=== PATIENT | female | born 1940 | race Caucasian/White ===

== ENCOUNTER 2022-03-25 12:58 | Inpatient (IN) | payer OTHER ==
[2022-03-25 13:22] VITALS: BMI 29.9
[2022-03-25 15:39] LABS: EOS % 1.1 % (0-4.5); MCH 20.9 pg (25.7-33.7); MCHC 28.9 g/dl (32.0-36.0); MEAN CELL VOLUME 72.1 fl (80-96); MEAN PLT VOLUME 8.5 fl (7.5-11.1); MONO % 9.8 % (3.8-10.2); NEUT % 66.1 % (42.8-82.8); PLATELET COUNT 340 10^3/uL (134-434); RBC 3.06 M/mm3 (3.60-5.2); RDW 24.7 % (11.6-15.6); WHITE BLOOD COUNT 6.5 K/mm3 (4.0-10.0)
[2022-03-25 15:43] LABS: HEMOGLOBIN 6.4 GM/dL (10.7-15.3)
[2022-03-25 16:00] LABS: ALBUMIN 3.7 g/dl (3.4-5.0); CALCIUM 9.2 mg/dL (8.5-10.1)
[2022-03-25 16:03] LABS: CREATININE 1.5 mg/dL (0.55-1.3)
[2022-03-25 16:05] LABS: BILIRUBIN,TOTAL 0.3 mg/dL (0.2-1); TOT PROT 6.3 g/dl (6.4-8.2)
[2022-03-25 17:56] LABS: INR 1.04 (0.83-1.09)
[2022-03-25 17:59] LABS: ACTIVATED PTT 27.3 SECONDS (25.2-36.5)
[2022-03-25] MEDS ORDERED: PATIENT'S OWN MEDICATION (NON-FORMULARY) (Meloxicam 15 MG Tablet) PO PRN (21:06)
[2022-03-25] MEDS ORDERED: DONEPEZIL HCL 10 MG TABLET (FP) PO SCH (21:15)
[2022-03-25] MEDS ORDERED: PATIENT'S OWN MEDICATION (NON-FORMULARY) (Mirtazapine [Mirtazapine] 7.5 MG Tablet) PO SCH (22:00)
[2022-03-25 22:01] LABS: ANISOCYTOSIS 2+; MACROCYTOSIS 0; OVALOCYTE 1+; PLATELET ESTIMATE NORMAL
[2022-03-26] MEDS: GABAPENTIN 300 MG CAPSULE PO SCH ×4 (01:43→21:02)
[2022-03-26] MEDS: DONEPEZIL HCL 5 MG TABLET (FP) PO SCH ×2 (01:43→09:38)
[2022-03-26] MEDS: ATORVASTATIN CA 40 MG TABLET (FP) PO SCH ×2 (01:43→21:02)
[2022-03-26] MEDS: MONTELUKAST NA 10 MG TABLET PO SCH ×2 (01:43→21:02)
[2022-03-26] MEDS: QUEtiapine FUMARATE 25 MG TABLET PO SCH ×3 (01:43→21:02)
[2022-03-26] MEDS: INSULIN SLIDING SCALE (NOVOLOG) 1 VIAL SQ SCH ×4 (01:54→16:30)
[2022-03-26] MEDS ORDERED: ACETAMINOPHEN 1000 MG/100 ML BAG IVPB ONE (02:02)
[2022-03-26] MEDS ORDERED: INSULIN (NOVOLOG) ASPART 100 UNITS/ML 10ML VIAL ONE (07:16)
[2022-03-26] MEDS: ASPIRIN 81 MG CHEWABLE TABLETS PO SCH (09:38)
[2022-03-26] MEDS: FAMOTIDINE 20 MG TABLET PO SCH (09:39)
[2022-03-26] MEDS: SERTRALINE HCL 50 MG TABLET (FP) PO SCH (09:39)
[2022-03-26 09:59] LABS: HEMATOCRIT 28.6 % (32.4-45.2); HEMOGLOBIN 8.6 GM/dL (10.7-15.3); MCH 22.5 pg (25.7-33.7); MCHC 30.2 g/dl (32.0-36.0); MEAN CELL VOLUME 74.7 fl (80-96); MEAN PLT VOLUME 8.8 fl (7.5-11.1); PLATELET COUNT 313 10^3/uL (134-434); RBC 3.83 M/mm3 (3.60-5.2); RDW 24.2 % (11.6-15.6); WHITE BLOOD COUNT 7.7 K/mm3 (4.0-10.0)
[2022-03-26] MEDS ORDERED: LOSARTAN POTASSIUM 50 MG TABLET PO SCH (10:00)
[2022-03-26] MEDS ORDERED: HYDROCHLOROTHIAZIDE 25 MG TABLET (FP) PO SCH (10:00)
[2022-03-26 10:15] LABS: CALCIUM 9.3 mg/dL (8.5-10.1)
[2022-03-26 10:16] LABS: BLOOD UREA NITROGEN 14.7 mg/dL (7-18)
[2022-03-26 10:19] LABS: CREATININE 1.3 mg/dL (0.55-1.3); PHOSPHOROUS 3.8 mg/dL (2.5-4.9)
[2022-03-26] MEDS ORDERED: IRON SUCROSE INJECTION 200 MG in SODIUM CHLORIDE 90 ML IVPB ONE (15:27)
[2022-03-26 20:03] LABS: PH,URINE 6.5 (5.0-8.0); URINE APPEARANCE CLEAR; URINE BILIRUBIN NEGATIVE (NEGATIVE); URINE COLOR YELLOW; URINE GLUCOSE (UA) NEGATIVE (NEGATIVE); URINE KETONE NEGATIVE (NEGATIVE); URINE LEUK ESTERASE NEGATIVE (NEGATIVE); URINE NITRITE NEGATIVE (NEGATIVE); URINE PROTEIN NEGATIVE (NEGATIVE); URINE UROBILINOGEN 0.2 mg/dL (0.2-1.0)
[2022-03-26] MEDS ORDERED: MOMETASONE FUROATE 220 MCG/IH INHALER IH SCH (21:00)
[2022-03-26 21:41] VITALS: RESP 20
[2022-03-27 05:58] VITALS: BP 132/57; PULSE 55; TEMP 97.7
[2022-03-27] MEDS: GABAPENTIN 300 MG CAPSULE PO SCH (06:47)
[2022-03-27] MEDS: INSULIN SLIDING SCALE (NOVOLOG) 1 VIAL SQ SCH (06:48)
[2022-03-27] MEDS: SERTRALINE HCL 50 MG TABLET (FP) PO SCH (09:28)
[2022-03-27] MEDS: FAMOTIDINE 20 MG TABLET PO SCH (09:28)
[2022-03-27] MEDS: DONEPEZIL HCL 5 MG TABLET (FP) PO SCH (09:28)
[2022-03-27] MEDS: ASPIRIN 81 MG CHEWABLE TABLETS PO SCH (09:28)
[2022-03-27] MEDS: QUEtiapine FUMARATE 25 MG TABLET PO SCH (09:28)
== END 2022-03-27 11:23 | disposition home or self-care (01) | DRG 812 ==
LOC: JER 12:58 → EDBD 12:58 → JERBED 14:48 → J8W 03-26 01:24
PROVIDERS: ADMIT Internal Medicine; ATTEND Internal Medicine
PROC: 30233N1 Transfusion of Nonautologous Red Blood Cells into Peripheral Vein, Percutaneous Approach (ICD-10-PCS; principal; 2022-03-25)
DX: D50.9 Iron deficiency anemia, unspecified (principal); I24.8 Other forms of acute ischemic heart disease; I10 Essential (primary) hypertension; F03.90 Unspecified dementia, unspecified severity, without behavioral disturbance, psychotic disturbance, mood disturbance, and anxiety; M81.0 Age-related osteoporosis without current pathological fracture; J45.909 Unspecified asthma, uncomplicated
CPT/HCPCS: 36415; 36430; 71045-TC-FY; 74176-TC; 76775-TC; 80048; 80053; 81003; 82550; 82728; 82962; 83010; 83036; 83540; 83550; 83615; 83735; 84100; 84466; 84484; 85025; 85027; 85045; 85610; 85730; 86850; 86900; 86901; 86922; 93005; 93010; 99285-25; C9803-CS; J1756; P9058; U0003; U0005

== ENCOUNTER 2023-03-09 09:38 | Observation (INO) | payer OTHER ==
[~2023-03-09 09:38] MED LIST: traMADol HCL 50 MG TABLET PO ONE
[2023-03-09] MEDS ORDERED: ACETAMINOPHEN 500 MG TABLET (FP) PO ONE (13:23)
[2023-03-09] MEDS ORDERED: ACETAMINOPHEN 500 MG TABLET (FP) ONE (13:54)
[2023-03-09 14:57] LABS: BASO % 0.8 % (0-2.0); EOS % 1.4 % (0-4.5); HEMATOCRIT 34.8 % (32.4-45.2); HEMOGLOBIN 11.3 GM/dL (10.7-15.3); LYMPH % 37.4 % (8-40); MCH 28.9 pg (25.7-33.7); MCHC 32.5 g/dl (32.0-36.0); MEAN CELL VOLUME 88.9 fl (80-96); MEAN PLT VOLUME 8.4 fl (7.5-11.1); NEUT % 49.4 % (42.8-82.8); PLATELET COUNT 252 10^3/uL (134-434); RBC 3.92 M/mm3 (3.60-5.2); RDW 25.5 % (11.6-15.6); WHITE BLOOD COUNT 4.5 K/mm3 (4.0-10.0)
[2023-03-09 15:32] LABS: CALCIUM 9.8 mg/dL (8.5-10.1)
[2023-03-09 15:33] LABS: ALBUMIN 3.9 g/dl (3.4-5.0); MAGNESIUM 2.1 mg/dL (1.8-2.4)
[2023-03-09 15:38] LABS: TOT PROT 7.3 g/dl (6.4-8.2)
[2023-03-09] MEDS ORDERED: traMADol HCL 50 MG TABLET PO ONE (15:39)
[2023-03-09 15:40] LABS: BILIRUBIN,TOTAL 0.2 mg/dL (0.2-1)
[2023-03-09 15:54] LABS: ANISOCYTOSIS 2+; MACROCYTOSIS 0
[2023-03-09] MEDS ORDERED: traMADol HCL 50 MG TABLET ONE (16:06)
[2023-03-09] MEDS ORDERED: traMADol HCL 50 MG TABLET PO PRN ×2 (23:14→23:33)
[2023-03-09] MEDS ORDERED: ALBUTEROL SO4 HFA INHALER IH PRN (23:51)
[2023-03-10 09:04] VITALS: BMI 25.9
[2023-03-10] MEDS: ACETAMINOPHEN 500 MG TABLET (FP) PO PRN ×2 (10:05→21:48)
[2023-03-10] MEDS: SERTRALINE HCL 50 MG TABLET (FP) PO SCH (10:06)
[2023-03-10] MEDS: FAMOTIDINE 20 MG TABLET PO SCH (10:07)
[2023-03-10] MEDS: ASPIRIN 81 MG CHEWABLE TABLETS PO SCH (10:07)
[2023-03-10] MEDS: GABAPENTIN 300 MG CAPSULE PO SCH (10:07)
[2023-03-10] MEDS: HYDROCHLOROTHIAZIDE 25 MG TABLET (FP) PO SCH (10:07)
[2023-03-10] MEDS: LOSARTAN POTASSIUM 50 MG TABLET PO SCH (10:07)
[2023-03-10] MEDS: ENOXAPARIN NA (PORCINE) 40 MG/0.4 ML DISP.SYRIN SQ SCH (10:08)
[2023-03-10] MEDS: QUEtiapine FUMARATE 25 MG TABLET PO SCH (10:08)
[2023-03-10] MEDS: MOMETASONE FUROATE 110 MCG/IH INHALER IH SCH ×2 (10:22→21:52)
[2023-03-10] MEDS: MIRTAZAPINE 15 MG TABLET (FP) PO SCH ×2 (10:23→21:49)
[2023-03-10 10:27] LABS: BASO % 2.2 % (0-2.0); EOS % 2.9 % (0-4.5); HEMATOCRIT 34.8 % (32.4-45.2); HEMOGLOBIN 11.2 GM/dL (10.7-15.3); LYMPH % 31.4 % (8-40); MCH 28.9 pg (25.7-33.7); MCHC 32.1 g/dl (32.0-36.0); MEAN CELL VOLUME 89.9 fl (80-96); MEAN PLT VOLUME 8.5 fl (7.5-11.1); MONO % 12.3 % (3.8-10.2); NEUT % 51.2 % (42.8-82.8); PLATELET COUNT 266 10^3/uL (134-434); RBC 3.86 M/mm3 (3.60-5.2); RDW 24.9 % (11.6-15.6); WHITE BLOOD COUNT 3.7 K/mm3 (4.0-10.0)
[2023-03-10 10:52] LABS: POTASSIUM 4.6 mmol/L (3.5-5.1)
[2023-03-10 10:59] LABS: CALCIUM 9.4 mg/dL (8.5-10.1)
[2023-03-10 11:00] LABS: ALBUMIN 3.6 g/dl (3.4-5.0)
[2023-03-10 11:02] LABS: PHOSPHOROUS 2.7 mg/dL (2.5-4.9)
[2023-03-10 11:04] LABS: BILIRUBIN,TOTAL 0.2 mg/dL (0.2-1); TOT PROT 7.1 g/dl (6.4-8.2)
[2023-03-10] MEDS: MONTELUKAST NA 10 MG TABLET PO SCH (21:48)
[2023-03-10] MEDS: DONEPEZIL HCL 10 MG TABLET (FP) PO SCH (21:48)
[2023-03-10] MEDS: ATORVASTATIN CA 40 MG TABLET (FP) PO SCH (21:49)
[2023-03-11] MEDS: LOSARTAN POTASSIUM 50 MG TABLET PO SCH (09:23)
[2023-03-11] MEDS: ENOXAPARIN NA (PORCINE) 40 MG/0.4 ML DISP.SYRIN SQ SCH (09:23)
[2023-03-11] MEDS: HYDROCHLOROTHIAZIDE 25 MG TABLET (FP) PO SCH (09:24)
[2023-03-11] MEDS: FAMOTIDINE 20 MG TABLET PO SCH (09:24)
[2023-03-11] MEDS: GABAPENTIN 300 MG CAPSULE PO SCH (09:24)
[2023-03-11] MEDS: QUEtiapine FUMARATE 25 MG TABLET PO SCH (09:24)
[2023-03-11] MEDS: SERTRALINE HCL 50 MG TABLET (FP) PO SCH (09:25)
[2023-03-11] MEDS: ASPIRIN 81 MG CHEWABLE TABLETS PO SCH (09:26)
[2023-03-11] MEDS: MOMETASONE FUROATE 110 MCG/IH INHALER IH SCH ×2 (09:26→22:33)
[2023-03-11 09:38] LABS: BASO % 1.1 % (0-2.0); EOS % 4.9 % (0-4.5); HEMATOCRIT 36.9 % (32.4-45.2); HEMOGLOBIN 12.1 GM/dL (10.7-15.3); LYMPH % 40.7 % (8-40); MCH 29.1 pg (25.7-33.7); MCHC 32.8 g/dl (32.0-36.0); MEAN PLT VOLUME 8.4 fl (7.5-11.1); MONO % 12.6 % (3.8-10.2); NEUT % 40.7 % (42.8-82.8); PLATELET COUNT 258 10^3/uL (134-434); RBC 4.14 M/mm3 (3.60-5.2); RDW 25.1 % (11.6-15.6); WHITE BLOOD COUNT 3.3 K/mm3 (4.0-10.0)
[2023-03-11] MEDS: MIRTAZAPINE 15 MG TABLET (FP) PO SCH ×2 (09:38→22:31)
[2023-03-11 09:57] LABS: POTASSIUM 4.2 mmol/L (3.5-5.1)
[2023-03-11 09:58] LABS: CALCIUM 9.2 mg/dL (8.5-10.1)
[2023-03-11 09:59] LABS: BLOOD UREA NITROGEN 16.3 mg/dL (7-18)
[2023-03-11 10:02] LABS: CREATININE 1.1 mg/dL (0.55-1.3)
[2023-03-11] MEDS ORDERED: ACETAMINOPHEN 1000 MG/100 ML BAG IVPB PRN (17:43)
[2023-03-11 18:12] VITALS: RESP 18
[2023-03-11] MEDS: CHOLECALCIFEROL (VIT D3) 1,000 UNIT (25 MCG) TABLET PO SCH (18:31)
[2023-03-11] MEDS: ATORVASTATIN CA 40 MG TABLET (FP) PO SCH (22:31)
[2023-03-11] MEDS: MONTELUKAST NA 10 MG TABLET PO SCH (22:31)
[2023-03-11] MEDS: DONEPEZIL HCL 10 MG TABLET (FP) PO SCH (22:32)
[2023-03-12] MEDS: ASPIRIN 81 MG CHEWABLE TABLETS PO SCH (09:30)
[2023-03-12] MEDS: ENOXAPARIN NA (PORCINE) 40 MG/0.4 ML DISP.SYRIN SQ SCH (09:30)
[2023-03-12] MEDS: LOSARTAN POTASSIUM 50 MG TABLET PO SCH (09:30)
[2023-03-12] MEDS: MIRTAZAPINE 15 MG TABLET (FP) PO SCH (09:31)
[2023-03-12] MEDS: HYDROCHLOROTHIAZIDE 25 MG TABLET (FP) PO SCH (09:31)
[2023-03-12] MEDS: SERTRALINE HCL 50 MG TABLET (FP) PO SCH (09:32)
[2023-03-12] MEDS: FAMOTIDINE 20 MG TABLET PO SCH (09:32)
[2023-03-12] MEDS: GABAPENTIN 300 MG CAPSULE PO SCH (09:32)
[2023-03-12] MEDS: CHOLECALCIFEROL (VIT D3) 1,000 UNIT (25 MCG) TABLET PO SCH (09:32)
[2023-03-12] MEDS ORDERED: ACETAMINOPHEN 500 MG TABLET (FP) PO PRN (10:32)
[2023-03-12] MEDS: QUEtiapine FUMARATE 25 MG TABLET PO SCH (10:40)
[2023-03-12] MEDS: MOMETASONE FUROATE 110 MCG/IH INHALER IH SCH (10:41)
[2023-03-12 14:24] VITALS: BP 123/66; PULSE 80; TEMP 97.9
== END 2023-03-12 16:51 | disposition home or self-care (01) ==
LOC: JER 09:38 → JERBED 18:01 → J5S 21:05
PROVIDERS: ADMIT Internal Medicine
PROC: 3E023GC Introduction of Other Therapeutic Substance into Muscle, Percutaneous Approach (ICD-10-PCS; principal; 2023-03-09)
DX: M25.551 Pain in right hip (principal); D64.9 Anemia, unspecified; Q65.89 Other specified congenital deformities of hip; M19.90 Unspecified osteoarthritis, unspecified site; I10 Essential (primary) hypertension; G89.29 Other chronic pain; M81.0 Age-related osteoporosis without current pathological fracture; F03.90 Unspecified dementia, unspecified severity, without behavioral disturbance, psychotic disturbance, mood disturbance, and anxiety; E78.5 Hyperlipidemia, unspecified; J45.909 Unspecified asthma, uncomplicated; R26.2 Difficulty in walking, not elsewhere classified; F32.A Depression, unspecified; E66.9 Obesity, unspecified; G62.9 Polyneuropathy, unspecified
CPT/HCPCS: 36415; 72100-TC-FY; 72195-TC; 73521-TC-FY; 73718-TC-RT; 80048; 80053; 82306; 83735; 84100; 85025; 93005; 93010; 96372; 97116-GP; 97162-GP; 99285-25; G0378

== ENCOUNTER 2023-10-29 18:34 | Observation (INO) | payer OTHER ==
[2023-10-29 20:59] LABS: BASO % 2.3 % (0-2.0); EOS % 4.3 % (0-4.5); HEMATOCRIT 21.9 % (32.4-45.2); LYMPH % 34.6 % (8-40); MCH 23.7 pg (25.7-33.7); MCHC 31.1 g/dl (32.0-36.0); MEAN CELL VOLUME 76.1 fl (80-96); MEAN PLT VOLUME 8.2 fl (7.5-11.1); MONO % 15.3 % (3.8-10.2); NEUT % 43.5 % (42.8-82.8); PLATELET COUNT 409 10^3/uL (134-434); RBC 2.88 M/mm3 (3.60-5.2); RDW 17.2 % (11.6-15.6); WHITE BLOOD COUNT 3.9 K/mm3 (4.0-10.0)
[2023-10-29 21:06] LABS: INR 0.97 (0.83-1.09)
[2023-10-29 21:08] LABS: ACTIVATED PTT 26.2 SECONDS (25.2-36.5)
[2023-10-29 21:14] LABS: POTASSIUM 4.9 mmol/L (3.5-5.1)
[2023-10-29 21:17] LABS: ALBUMIN 3.8 g/dl (3.4-5.0); BLOOD UREA NITROGEN 27.5 mg/dL (7-18); CALCIUM 9.1 mg/dL (8.5-10.1); MAGNESIUM 2.4 mg/dL (1.8-2.4)
[2023-10-29 21:19] LABS: CREATININE 1.3 mg/dL (0.55-1.3)
[2023-10-29 21:21] LABS: BILIRUBIN,TOTAL 0.2 mg/dL (0.2-1); TOT PROT 7.2 g/dl (6.4-8.2)
[2023-10-29 21:24] LABS: N-TERMINAL BNP 118.4 pg/ml (5-450)
[2023-10-29 21:25] LABS: HEMOGLOBIN 6.8 GM/dL (10.7-15.3)
[2023-10-29] MEDS ORDERED: ONDANSETRON 4 MG/2 ML VIAL IVPUSH PRN (22:57)
[2023-10-29] MEDS ORDERED: ALBUTEROL SO4 HFA INHALER IH PRN (23:10)
[2023-10-30] MEDS ORDERED: QUEtiapine FUMARATE 25 MG TABLET ONE (00:34)
[2023-10-30] MEDS ORDERED: PANTOPRAZOLE SODIUM 40 MG/100 ML BAG IVPB ONE (00:34)
[2023-10-30] MEDS ORDERED: MIRTAZAPINE 15 MG TABLET (FP) ONE (00:34)
[2023-10-30] MEDS ORDERED: ATORVASTATIN CA 40 MG TABLET (FP) ONE (00:34)
[2023-10-30] MEDS ORDERED: GABAPENTIN 300 MG CAPSULE ONE (00:34)
[2023-10-30] MEDS: QUEtiapine FUMARATE 25 MG TABLET PO SCH (00:45)
[2023-10-30] MEDS: ATORVASTATIN CA 40 MG TABLET (FP) PO SCH (00:45)
[2023-10-30] MEDS: PANTOPRAZOLE SODIUM 40 MG VIAL IVPUSH ONE (00:45)
[2023-10-30] MEDS: GABAPENTIN 300 MG CAPSULE PO SCH (00:46)
[2023-10-30] MEDS: MIRTAZAPINE 15 MG TABLET (FP) PO SCH (00:46)
[2023-10-30] MEDS: MOMETASONE FUROATE 220 MCG/IH INHALER IH SCH (00:46)
[2023-10-30 03:22] VITALS: BMI 25.9
[2023-10-30 06:56] VITALS: RESP 18
[2023-10-30 07:37] LABS: POTASSIUM 4.7 mmol/L (3.5-5.1)
[2023-10-30 07:44] LABS: HEMATOCRIT 27.7 % (32.4-45.2); HEMOGLOBIN 8.7 GM/dL (10.7-15.3); MCH 24.3 pg (25.7-33.7); MCHC 31.4 g/dl (32.0-36.0); MEAN CELL VOLUME 77.5 fl (80-96); MEAN PLT VOLUME 8.5 fl (7.5-11.1); PLATELET COUNT 418 10^3/uL (134-434); RBC 3.57 M/mm3 (3.60-5.2); RDW 16.7 % (11.6-15.6); WHITE BLOOD COUNT 5.7 K/mm3 (4.0-10.0)
[2023-10-30 07:46] LABS: ALBUMIN 3.6 g/dl (3.4-5.0); CALCIUM 9.5 mg/dL (8.5-10.1)
[2023-10-30 07:48] LABS: BLOOD UREA NITROGEN 23.5 mg/dL (7-18); MAGNESIUM 2.4 mg/dL (1.8-2.4)
[2023-10-30 07:50] LABS: CREATININE 1.2 mg/dL (0.55-1.3)
[2023-10-30 07:51] LABS: BILIRUBIN,TOTAL 0.6 mg/dL (0.2-1); PHOSPHOROUS 3.4 mg/dL (2.5-4.9)
[2023-10-30 07:53] LABS: TOT PROT 6.8 g/dl (6.4-8.2)
[2023-10-30 09:25] VITALS: BP 130/57; PULSE 65; TEMP 98.8
[2023-10-30] MEDS: HYDROCHLOROTHIAZIDE 25 MG TABLET (FP) PO SCH (09:56)
[2023-10-30] MEDS: PANTOPRAZOLE SODIUM 40 MG VIAL IVPUSH SCH (09:56)
[2023-10-30] MEDS: ASPIRIN 81 MG CHEWABLE TABLETS PO SCH (09:56)
[2023-10-30] MEDS: SERTRALINE HCL 50 MG TABLET (FP) PO SCH (09:56)
[2023-10-30] MEDS: CHOLECALCIFEROL (VIT D3) 1,000 UNIT (25 MCG) TABLET PO SCH (09:57)
[2023-10-30] MEDS: FAMOTIDINE 20 MG TABLET PO SCH (09:57)
[2023-10-30] MEDS: LOSARTAN POTASSIUM 50 MG TABLET PO SCH (09:57)
[2023-10-30 11:06] LABS: RETICULOCYTES 1.11 % (0.5-1.5)
[2023-10-30] MEDS ORDERED: DONEPEZIL HCL 10 MG TABLET (FP) PO SCH (22:00)
[2023-10-30] MEDS ORDERED: MONTELUKAST NA 10 MG TABLET PO SCH (22:00)
[2023-10-31 08:49] LABS: RETICULOCYTES 1.26 % (0.5-1.5)
== END 2023-10-30 13:16 | disposition home health service (06) ==
LOC: JER 18:34 → UNDOADMOB 21:26 → JERBED 21:26 → OBSVTOIN 22:59 → INTOOBSV 22:59 → JERBED 10-30 02:14 → J7W 10-30 02:14 → OBSVTOIN 10-30 08:03 → JERBED 10-30 08:03 → INTOOBSV 10-30 08:03 → J7W 10-30 08:03
PROVIDERS: ADMIT Internal Medicine; ATTEND Internal Medicine
PROC: 30233N1 Transfusion of Nonautologous Red Blood Cells into Peripheral Vein, Percutaneous Approach (ICD-10-PCS; principal; 2023-10-30)
PROC: 3E033GC Introduction of Other Therapeutic Substance into Peripheral Vein, Percutaneous Approach (ICD-10-PCS; 2023-10-30)
DX: D64.9 Anemia, unspecified (principal); F03.90 Unspecified dementia, unspecified severity, without behavioral disturbance, psychotic disturbance, mood disturbance, and anxiety; J45.909 Unspecified asthma, uncomplicated; M19.90 Unspecified osteoarthritis, unspecified site; R61 Generalized hyperhidrosis; I10 Essential (primary) hypertension; E78.5 Hyperlipidemia, unspecified; M81.0 Age-related osteoporosis without current pathological fracture; Z90.49 Acquired absence of other specified parts of digestive tract
CPT/HCPCS: 0241U-QW; 36415; 36430; 71045-TC-FY; 80053; 82272; 82728; 83010; 83036; 83540; 83550; 83615; 83735; 83880; 84100; 84484; 85025; 85027; 85045; 85610; 85730; 86850; 86900; 86901; 86922; 93005; 93010; 96374; 96376; 99285-25; G0378; P9058

== ENCOUNTER 2023-11-19 17:40 | Inpatient (IN) | payer OTHER ==
[2023-11-19 17:54] VITALS: BMI 26.2
[2023-11-19 18:57] LABS: BASO % 1.1 % (0-2.0); EOS % 2.5 % (0-4.5); HEMATOCRIT 24.9 % (32.4-45.2); HEMOGLOBIN 7.8 GM/dL (10.7-15.3); LYMPH % 32.1 % (8-40); MCH 23.5 pg (25.7-33.7); MCHC 31.3 g/dl (32.0-36.0); MEAN CELL VOLUME 75.2 fl (80-96); MEAN PLT VOLUME 8.4 fl (7.5-11.1); MONO % 16.2 % (3.8-10.2); NEUT % 48.1 % (42.8-82.8); PLATELET COUNT 324 10^3/uL (134-434); RBC 3.31 M/mm3 (3.60-5.2); RDW 19.4 % (11.6-15.6); WHITE BLOOD COUNT 3.6 K/mm3 (4.0-10.0)
[2023-11-19 19:03] LABS: INR 0.95 (0.83-1.09); PROTHROMBIN TIME (PATIENT) 10.9 SEC (9.7-13.0)
[2023-11-19 19:06] LABS: ACTIVATED PTT 27.6 SECONDS (25.2-36.5)
[2023-11-19 19:26] LABS: ALBUMIN 3.9 g/dl (3.4-5.0); BLOOD UREA NITROGEN 31.5 mg/dL (7-18)
[2023-11-19 19:30] LABS: CREATININE 1.8 mg/dL (0.55-1.3)
[2023-11-19 19:31] LABS: BILIRUBIN,TOTAL 0.2 mg/dL (0.2-1); TOT PROT 6.8 g/dl (6.4-8.2)
[2023-11-19] MEDS: LACTATED RINGERS SOLUTION 1000 ML INFUS.BAG IV ONE (19:58)
[2023-11-19] MEDS: SODIUM CHLORIDE 1,000 ML IV SCH (21:32)
[2023-11-19] MEDS ORDERED: ATORVASTATIN CA 40 MG TABLET (FP) ONE (21:55)
[2023-11-19] MEDS ORDERED: GABAPENTIN 300 MG CAPSULE ONE (21:55)
[2023-11-19] MEDS ORDERED: QUEtiapine FUMARATE 25 MG TABLET ONE (21:55)
[2023-11-19] MEDS: GABAPENTIN 300 MG CAPSULE PO SCH (21:57)
[2023-11-19] MEDS: ATORVASTATIN CA 40 MG TABLET (FP) PO SCH (21:57)
[2023-11-19] MEDS: QUEtiapine FUMARATE 25 MG TABLET PO SCH (21:57)
[2023-11-20 07:03] LABS: HEMATOCRIT 24.7 % (32.4-45.2); HEMOGLOBIN 7.6 GM/dL (10.7-15.3); MCH 23.6 pg (25.7-33.7); MCHC 30.9 g/dl (32.0-36.0); MEAN CELL VOLUME 76.5 fl (80-96); MEAN PLT VOLUME 8.5 fl (7.5-11.1); PLATELET COUNT 275 10^3/uL (134-434); RBC 3.23 M/mm3 (3.60-5.2); RDW 19.1 % (11.6-15.6); WHITE BLOOD COUNT 4.1 K/mm3 (4.0-10.0)
[2023-11-20 07:20] LABS: POTASSIUM 4.9 mmol/L (3.5-5.1)
[2023-11-20 07:23] LABS: CALCIUM 9.1 mg/dL (8.5-10.1)
[2023-11-20 07:24] LABS: BLOOD UREA NITROGEN 24.6 mg/dL (7-18); MAGNESIUM 2.4 mg/dL (1.8-2.4)
[2023-11-20 07:27] LABS: CREATININE 1.4 mg/dL (0.55-1.3)
[2023-11-20] MEDS ORDERED: PATIENT'S OWN MEDICATION (NON-FORMULARY) (Losartan Potassium [Cozaar] 100 MG Tablet) PO SCH (10:00)
[2023-11-20] MEDS ORDERED: HYDROCHLOROTHIAZIDE 25 MG TABLET (FP) PO SCH (10:00)
[2023-11-20] MEDS ORDERED: GABAPENTIN 300 MG CAPSULE ONE (10:09)
[2023-11-20] MEDS ORDERED: FERROUS SO4 325 MG TABLET (FP) ONE (10:10)
[2023-11-20] MEDS ORDERED: SERTRALINE HCL 50 MG TABLET (FP) ONE (10:16)
[2023-11-20] MEDS: FERROUS SO4 325 MG TABLET (FP) PO SCH (10:18)
[2023-11-20] MEDS: SERTRALINE HCL 50 MG TABLET (FP) PO SCH (10:18)
[2023-11-20] MEDS: FAMOTIDINE 20 MG TABLET PO SCH (12:13)
[2023-11-20] MEDS: ACETAMINOPHEN 325 MG TABLET (FP) PO PRN (16:11)
[2023-11-20] MEDS: MIRTAZAPINE 15 MG TABLET (FP) PO SCH (22:00)
[2023-11-20] MEDS: DONEPEZIL HCL 10 MG TABLET (FP) PO SCH (22:01)
[2023-11-20] MEDS: MONTELUKAST NA 10 MG TABLET PO SCH (22:01)
[2023-11-20] MEDS: MOMETASONE FUROATE 220 MCG/IH INHALER IH SCH (22:39)
[2023-11-21 08:12] LABS: BASO % 1.1 % (0-2.0); EOS % 5.6 % (0-4.5); HEMATOCRIT 26.2 % (32.4-45.2); LYMPH % 43.9 % (8-40); MCH 23.6 pg (25.7-33.7); MCHC 30.5 g/dl (32.0-36.0); MEAN CELL VOLUME 77.2 fl (80-96); MEAN PLT VOLUME 8.6 fl (7.5-11.1); MONO % 13.3 % (3.8-10.2); NEUT % 36.1 % (42.8-82.8); PLATELET COUNT 295 10^3/uL (134-434); RBC 3.39 M/mm3 (3.60-5.2); RDW 19.3 % (11.6-15.6); WHITE BLOOD COUNT 3.7 K/mm3 (4.0-10.0)
[2023-11-21 08:22] LABS: POTASSIUM 5.1 mmol/L (3.5-5.1)
[2023-11-21 08:24] LABS: CALCIUM 9.2 mg/dL (8.5-10.1)
[2023-11-21 08:25] LABS: ALBUMIN 3.4 g/dl (3.4-5.0)
[2023-11-21 08:28] LABS: CREATININE 1.1 mg/dL (0.55-1.3)
[2023-11-21 08:29] LABS: BILIRUBIN,TOTAL 0.2 mg/dL (0.2-1)
[2023-11-21 08:30] LABS: TOT PROT 6.2 g/dl (6.4-8.2)
[2023-11-21] MEDS: LOSARTAN POTASSIUM 50 MG TABLET PO SCH (09:39)
[2023-11-21] MEDS: IRON SUCROSE INJECTION 200 MG in SODIUM CHLORIDE 90 ML IVPB ONE (09:39)
[2023-11-21 16:08] LABS: FREE KAPPA,SERUM 48.1 mg/L (3.3-19.4)
[2023-11-21] MEDS: IRON SUCROSE INJECTION 100 MG in SODIUM CHLORIDE 95 ML IVPB ONE (20:07)
[2023-11-22 08:21] LABS: BASO % 0.9 % (0-2.0); EOS % 3.4 % (0-4.5); HEMATOCRIT 26.3 % (32.4-45.2); HEMOGLOBIN 8.1 GM/dL (10.7-15.3); MCH 23.7 pg (25.7-33.7); MCHC 30.6 g/dl (32.0-36.0); MEAN CELL VOLUME 77.4 fl (80-96); MEAN PLT VOLUME 8.5 fl (7.5-11.1); MONO % 10.1 % (3.8-10.2); NEUT % 60.6 % (42.8-82.8); PLATELET COUNT 294 10^3/uL (134-434); RDW 19.2 % (11.6-15.6); WHITE BLOOD COUNT 7.2 K/mm3 (4.0-10.0)
[2023-11-22 08:32] LABS: POTASSIUM 4.9 mmol/L (3.5-5.1)
[2023-11-22 08:34] LABS: BLOOD UREA NITROGEN 12.5 mg/dL (7-18); CALCIUM 9.3 mg/dL (8.5-10.1)
[2023-11-22 08:35] LABS: ALBUMIN 3.3 g/dl (3.4-5.0)
[2023-11-22 08:39] LABS: BILIRUBIN,TOTAL 0.1 mg/dL (0.2-1); TOT PROT 6.2 g/dl (6.4-8.2)
[2023-11-22] MEDS: IRON SUCROSE INJECTION 200 MG in SODIUM CHLORIDE 100 ML IVPB ONE (11:34)
[2023-11-23 08:52] LABS: BASO % 0.8 % (0-2.0); EOS % 3.4 % (0-4.5); HEMATOCRIT 28.9 % (32.4-45.2); LYMPH % 29.7 % (8-40); MCH 24.1 pg (25.7-33.7); MEAN CELL VOLUME 77.6 fl (80-96); MEAN PLT VOLUME 8.7 fl (7.5-11.1); MONO % 10.5 % (3.8-10.2); NEUT % 55.6 % (42.8-82.8); PLATELET COUNT 294 10^3/uL (134-434); RBC 3.72 M/mm3 (3.60-5.2); RDW 19.2 % (11.6-15.6)
[2023-11-23 09:09] LABS: POTASSIUM 4.8 mmol/L (3.5-5.1)
[2023-11-23 09:21] LABS: ALBUMIN 3.4 g/dl (3.4-5.0); BLOOD UREA NITROGEN 11.8 mg/dL (7-18); CALCIUM 9.5 mg/dL (8.5-10.1)
[2023-11-23 09:22] LABS: CREATININE 1.1 mg/dL (0.55-1.3)
[2023-11-23 09:23] LABS: BILIRUBIN,TOTAL 0.2 mg/dL (0.2-1); TOT PROT 6.1 g/dl (6.4-8.2)
[2023-11-23] MEDS: PANTOPRAZOLE 40 MG TABLET PO SCH (10:09)
[2023-11-23] MEDS: IRON SUCROSE INJECTION 200 MG in SODIUM CHLORIDE 100 ML IVPB ONE (14:46)
[2023-11-24 02:05] VITALS: RESP 18
[2023-11-24 09:05] LABS: BASO % 0.7 % (0-2.0); EOS % 2.8 % (0-4.5); HEMATOCRIT 30.4 % (32.4-45.2); HEMOGLOBIN 9.6 GM/dL (10.7-15.3); LYMPH % 16.3 % (8-40); MCH 24.6 pg (25.7-33.7); MCHC 31.5 g/dl (32.0-36.0); MEAN CELL VOLUME 78.2 fl (80-96); MEAN PLT VOLUME 8.4 fl (7.5-11.1); NEUT % 70.2 % (42.8-82.8); PLATELET COUNT 303 10^3/uL (134-434); RBC 3.89 M/mm3 (3.60-5.2); WHITE BLOOD COUNT 8.1 K/mm3 (4.0-10.0)
[2023-11-24 09:20] LABS: POTASSIUM 4.7 mmol/L (3.5-5.1)
[2023-11-24 09:23] LABS: CALCIUM 9.5 mg/dL (8.5-10.1)
[2023-11-24 09:24] LABS: ALBUMIN 3.4 g/dl (3.4-5.0); BLOOD UREA NITROGEN 15.3 mg/dL (7-18)
[2023-11-24 09:27] LABS: CREATININE 0.9 mg/dL (0.55-1.3)
[2023-11-24 09:29] LABS: BILIRUBIN,TOTAL 0.4 mg/dL (0.2-1); TOT PROT 6.6 g/dl (6.4-8.2)
[2023-11-24 12:50] VITALS: BP 142/59; PULSE 76; TEMP 98.6
== END 2023-11-24 12:45 | disposition home or self-care (01) | DRG 812 ==
LOC: JER 17:40 → JERBED 20:08 → J8W 11-20 10:55 → OBSVTOIN 11-24 10:14
PROVIDERS: ADMIT Internal Medicine; ATTEND Internal Medicine
PROC: 30233N1 Transfusion of Nonautologous Red Blood Cells into Peripheral Vein, Percutaneous Approach (ICD-10-PCS; principal; 2023-11-22)
DX: D50.9 Iron deficiency anemia, unspecified (principal); N17.9 Acute kidney failure, unspecified; F03.90 Unspecified dementia, unspecified severity, without behavioral disturbance, psychotic disturbance, mood disturbance, and anxiety; J45.909 Unspecified asthma, uncomplicated; I10 Essential (primary) hypertension; G62.9 Polyneuropathy, unspecified; M81.0 Age-related osteoporosis without current pathological fracture
CPT/HCPCS: 36415; 36430; 71045-TC-FY; 80048; 80053; 82272; 82728; 83540; 83550; 83615; 83735; 83883; 84155; 84165; 84439; 84443; 84484; 85025; 85027; 85045; 85610; 85730; 86850; 86900; 86901; 86922; 93005; 93010; 97116-GP; 97162-GP; 99285-25; G0378; J1756; P9058

== ENCOUNTER 2024-02-02 10:34 | Observation (INO) | payer OTHER ==
[2024-02-02 12:24] LABS: BASO % 0.2 % (0-2.0); HEMOGLOBIN 11.7 GM/dL (10.7-15.3); LYMPH % 13.6 % (8-40); MCH 29.2 pg (25.7-33.7); MCHC 33.3 g/dl (32.0-36.0); MEAN CELL VOLUME 87.7 fl (80-96); MEAN PLT VOLUME 8.3 fl (7.5-11.1); MONO % 13.9 % (3.8-10.2); NEUT % 71.3 % (42.8-82.8); PLATELET COUNT 263 10^3/uL (134-434); RBC 3.99 M/mm3 (3.60-5.2); RDW 23.5 % (11.6-15.6); WHITE BLOOD COUNT 6.9 K/mm3 (4.0-10.0)
[2024-02-02] MEDS ORDERED: ACETAMINOPHEN 325 MG TABLET (FP) ONE (12:33)
[2024-02-02 12:35] LABS: INR 1.03 (0.83-1.09); PROTHROMBIN TIME (PATIENT) 11.6 SEC (9.7-13.0)
[2024-02-02 12:38] LABS: ACTIVATED PTT 32.9 SECONDS (25.2-36.5)
[2024-02-02] MEDS: ACETAMINOPHEN 325 MG TABLET (FP) PO ONE (12:42)
[2024-02-02 12:44] LABS: POTASSIUM 4.7 mmol/L (3.5-5.1)
[2024-02-02 12:46] LABS: ALBUMIN 3.9 g/dl (3.4-5.0); BLOOD UREA NITROGEN 27.4 mg/dL (7-18); CALCIUM 9.8 mg/dL (8.5-10.1)
[2024-02-02 12:50] LABS: CREATININE 1.4 mg/dL (0.55-1.3)
[2024-02-02 12:51] LABS: BILIRUBIN,TOTAL 0.4 mg/dL (0.2-1); TOT PROT 7.5 g/dl (6.4-8.2)
[2024-02-02 13:08] LABS: ANISOCYTOSIS 1+; MACROCYTOSIS 1+; PLATELET ESTIMATE ADEQUATE
[2024-02-02 17:08] LABS: PH,URINE 5.5 (5.0-8.0); URINE APPEARANCE CLEAR; URINE BILIRUBIN NEGATIVE (NEGATIVE); URINE COLOR YELLOW; URINE GLUCOSE (UA) NEGATIVE (NEGATIVE); URINE KETONE NEGATIVE (NEGATIVE); URINE LEUK ESTERASE NEGATIVE (NEGATIVE); URINE NITRITE NEGATIVE (NEGATIVE); URINE PROTEIN NEGATIVE (NEGATIVE); URINE UROBILINOGEN 0.2 mg/dL (0.2-1.0)
[2024-02-02] MEDS ORDERED: SODIUM CHLORIDE 0.45% 1,000 ML IV SCH (20:30)
[2024-02-02] MEDS: SODIUM CHLORIDE 0.45% 1,000 ML IV SCH (23:34)
[2024-02-03] MEDS: ACETAMINOPHEN 1000 MG/100 ML BAG IVPB ONE (02:32)
[2024-02-03 03:55] VITALS: BMI 25.1
[2024-02-03] MEDS: SERTRALINE HCL 50 MG TABLET (FP) PO SCH (09:32)
[2024-02-03] MEDS: FAMOTIDINE 20 MG TABLET PO SCH (09:32)
[2024-02-03] MEDS: ACETAMINOPHEN 1000 MG/100 ML BAG IVPB PRN (09:33)
[2024-02-03] MEDS: LOSARTAN POTASSIUM 50 MG TABLET PO SCH (09:33)
[2024-02-03 09:57] LABS: BASO % 0.3 % (0-2.0); EOS % 1.2 % (0-4.5); HEMATOCRIT 33.6 % (32.4-45.2); HEMOGLOBIN 11.1 GM/dL (10.7-15.3); LYMPH % 17.8 % (8-40); MCHC 33.1 g/dl (32.0-36.0); MEAN CELL VOLUME 87.5 fl (80-96); MEAN PLT VOLUME 8.6 fl (7.5-11.1); MONO % 17.4 % (3.8-10.2); NEUT % 63.3 % (42.8-82.8); PLATELET COUNT 265 10^3/uL (134-434); RBC 3.85 M/mm3 (3.60-5.2); RDW 23.5 % (11.6-15.6); WHITE BLOOD COUNT 6.8 K/mm3 (4.0-10.0)
[2024-02-03 10:25] LABS: POTASSIUM 3.7 mmol/L (3.5-5.1)
[2024-02-03 10:29] LABS: BLOOD UREA NITROGEN 24.2 mg/dL (7-18); CALCIUM 9.2 mg/dL (8.5-10.1); MAGNESIUM 2.1 mg/dL (1.8-2.4)
[2024-02-03 10:32] LABS: CREATININE 1.1 mg/dL (0.55-1.3)
[2024-02-03 10:33] LABS: PHOSPHOROUS 2.9 mg/dL (2.5-4.9)
[2024-02-03] MEDS: MONTELUKAST NA 10 MG TABLET PO SCH (22:05)
[2024-02-03] MEDS: QUEtiapine FUMARATE 25 MG TABLET PO SCH (22:05)
[2024-02-03] MEDS: DONEPEZIL HCL 10 MG TABLET (FP) PO SCH (22:05)
[2024-02-03] MEDS: GABAPENTIN 300 MG CAPSULE PO SCH (22:05)
[2024-02-03] MEDS: ATORVASTATIN CA 40 MG TABLET (FP) PO SCH (22:05)
[2024-02-04 08:00] LABS: BASO % 0.3 % (0-2.0); EOS % 2.2 % (0-4.5); HEMATOCRIT 33.9 % (32.4-45.2); LYMPH % 31.2 % (8-40); MCH 28.7 pg (25.7-33.7); MCHC 32.4 g/dl (32.0-36.0); MEAN CELL VOLUME 88.6 fl (80-96); MEAN PLT VOLUME 8.2 fl (7.5-11.1); MONO % 16.5 % (3.8-10.2); NEUT % 49.8 % (42.8-82.8); PLATELET COUNT 278 10^3/uL (134-434); RBC 3.82 M/mm3 (3.60-5.2); RDW 22.8 % (11.6-15.6); WHITE BLOOD COUNT 5.2 K/mm3 (4.0-10.0)
[2024-02-04 08:18] LABS: POTASSIUM 3.9 mmol/L (3.5-5.1)
[2024-02-04 08:24] LABS: CALCIUM 9.6 mg/dL (8.5-10.1)
[2024-02-04 08:25] LABS: ALBUMIN 3.2 g/dl (3.4-5.0); BLOOD UREA NITROGEN 17.3 mg/dL (7-18); CHOLESTEROL 199 mg/dL (50-200)
[2024-02-04 08:26] LABS: LDL CHOLESTEROL (ONLY SJRH) 91 mg/dL (5-100)
[2024-02-04 08:28] LABS: CREATININE 0.9 mg/dL (0.55-1.3); HDL CHOLESTEROL 82 mg/dL (40-60)
[2024-02-04 08:30] LABS: BILIRUBIN,TOTAL 0.4 mg/dL (0.2-1); TOT PROT 6.6 g/dl (6.4-8.2)
[2024-02-04] MEDS ORDERED: PANTOPRAZOLE 40 MG TABLET PO SCH (10:00)
[2024-02-04] MEDS: ALBUTEROL SO4 HFA INHALER IH PRN (10:19)
[2024-02-04] MEDS: HYDROCHLOROTHIAZIDE 25 MG TABLET (FP) PO SCH (10:19)
[2024-02-04] MEDS: ACETAMINOPHEN 325 MG TABLET (FP) PO PRN (18:46)
[2024-02-05] MEDS: DOCUSATE SODIUM 100 MG CAPSULE (FP) PO PRN (21:42)
[2024-02-06 07:20] VITALS: RESP 16
[2024-02-06 14:51] VITALS: BP 137/62; PULSE 67; TEMP 98.2
[2024-02-06] MEDS ORDERED: MIRTAZAPINE 15 MG TABLET (FP) PO SCH (22:00)
== END 2024-02-06 15:25 | disposition home health service (06) ==
LOC: JER 10:34 → JERBED 19:16 → J4S 02-03 01:27
PROVIDERS: ADMIT Internal Medicine; ATTEND Internal Medicine
PROC: 3E033NZ Introduction of Analgesics, Hypnotics, Sedatives into Peripheral Vein, Percutaneous Approach (ICD-10-PCS; principal; 2024-02-02)
DX: M54.2 Cervicalgia (principal); M54.9 Dorsalgia, unspecified; M25.511 Pain in right shoulder; S09.90XA Unspecified injury of head, initial encounter; R42 Dizziness and giddiness; D64.9 Anemia, unspecified; W18.39XA Other fall on same level, initial encounter; Y93.89 Activity, other specified; Y92.003 Bedroom of unspecified non-institutional (private) residence as the place of occurrence of the external cause; R73.03 Prediabetes; I10 Essential (primary) hypertension; E78.5 Hyperlipidemia, unspecified; F03.90 Unspecified dementia, unspecified severity, without behavioral disturbance, psychotic disturbance, mood disturbance, and anxiety; G81.90 Hemiplegia, unspecified affecting unspecified side; K25.9 Gastric ulcer, unspecified as acute or chronic, without hemorrhage or perforation; K56.609 Unspecified intestinal obstruction, unspecified as to partial versus complete obstruction; N17.9 Acute kidney failure, unspecified; R55 Syncope and collapse; J45.909 Unspecified asthma, uncomplicated; G62.9 Polyneuropathy, unspecified; M19.90 Unspecified osteoarthritis, unspecified site; Z90.49 Acquired absence of other specified parts of digestive tract; Z90.79 Acquired absence of other genital organ(s)
CPT/HCPCS: 36415; 70450-TC; 70551-TC; 71045-TC-FY; 72125-TC; 72128-TC; 72131-TC; 72141-TC; 73030-TC-RT-FY; 80048; 80053; 80061; 81003; 82550; 82570; 83036; 83735; 84100; 84300; 84439; 84484; 85025; 85610; 85730; 93005; 93010; 93306-TC; 93880-TC; 96374; 97116-GP; 97161-GP; 99285-25; G0378; J0131